=== PATIENT | female | born 1945 | race Caucasian/White ===

== ENCOUNTER 2017-09-22 12:49 | Emergency (ER) | payer BC ==
[~2017-09-22] VITALS: Ht 160 cm; Wt 49.9 kg
== END 2017-09-22 15:07 | disposition home or self-care (01) ==
LOC: ER 12:49
DX: S00.01XA Abrasion of scalp, initial encounter (principal); W18.30XA Fall on same level, unspecified, initial encounter
CPT/HCPCS: 70450; 72125; 99283-25

== ENCOUNTER 2020-07-07 01:27 | Day surgery (SDC) | payer BC | END 2020-07-07 22:43 | disposition home or self-care (01) | LOC: WOUND 01:27 | DX: S61.210D Laceration without foreign body of right index finger without damage to nail, subsequent encounter (principal); X58.XXXD Exposure to other specified factors, subsequent encounter | CPT/HCPCS: G0463 ==

== ENCOUNTER 2020-07-14 00:28 | Day surgery (SDC) | payer BC | END 2020-07-14 23:07 | disposition home or self-care (01) | LOC: WOUND 00:28 | DX: S61.201D Unspecified open wound of left index finger without damage to nail, subsequent encounter (principal); X58.XXXD Exposure to other specified factors, subsequent encounter | CPT/HCPCS: G0463 ==

== ENCOUNTER 2020-07-21 03:28 | Day surgery (SDC) | payer BC | END 2020-07-21 23:05 | disposition home or self-care (01) | LOC: WOUND 03:28 | DX: S61.210D Laceration without foreign body of right index finger without damage to nail, subsequent encounter (principal); X58.XXXD Exposure to other specified factors, subsequent encounter | CPT/HCPCS: G0463 ==